=== PATIENT | male | born 1960 | race Caucasian/White ===

== ENCOUNTER 2021-02-02 05:55 | Inpatient (IN) | payer OTHER, SELFPAY ==
[2021-01-28 10:26] LABS: BASOPHILS # (AUTO) 0.1 K/uL (0.0-0.2); BASOPHILS % (AUTO) 0.8 % (0.0-2.0); EOSINOPHILS # (AUTO) 0.2 K/uL (0.0-0.4); EOSINOPHILS % (AUTO) 2.9 % (0.0-4.0); HEMATOCRIT 43.4 % (36-54); HEMOGLOBIN 14.4 g/dL (14.0-18.0); LYMPHOCYTES # (AUTO) 1.8 K/uL (1.0-5.5); LYMPHOCYTES % (AUTO) 28.6 % (20.5-51.5); MEAN CORPUSCULAR HEMOGLOBIN 28 pg (27-31); MEAN CORPUSCULAR HGB CONC 33 % (32-36); MEAN CORPUSCULAR VOLUME 85 fL (79.0-98.0); MONOCYTES # (AUTO) 0.3 K/uL (0.0-1.0); MONOCYTES % (AUTO) 5.4 % (1.7-9.3); NEUTROPHILS % (AUTO) 62.3 % (40.0-70.0); PLATELET COUNT (AUTO) 165 K/uL (130-430); RED CELL DISTRIBUTION WIDTH 14.3 % (9.0-15.0); WHITE BLOOD COUNT (AUTO) 6.5 K/uL (4.8-10.8)
[2021-01-28 10:30] LABS: BILIRUBIN,URINE NEGATIVE (NEGATIVE); BLOOD, URINE NEGATIVE (NEGATIVE); CLARITY/URINE CLEAR (CLEAR); COLOR,URINE YELLOW (YELLOW); GLUCOSE,URINE 1+ (NEGATIVE); KETONES,URINE NEGATIVE (NEGATIVE); LEUKOCYTE ESTERASE ,URINE NEGATIVE (NEGATIVE); NITRITE, URINE NEGATIVE (NEGATIVE); PROTEIN URINE NEGATIVE (NEGATIVE); UROBILINOGEN,URINE 0.2 (0.2-1.0)
[2021-01-28 11:12] LABS: CALCIUM 8.3 mg/dL (8.4-11.0); CREATININE 0.81 mg/dL (0.55-1.30); POTASSIUM 4.1 mmol/L (3.5-5.1)
[~2021-02-02] VITALS: Ht 172.7 cm; Wt 95.3 kg
[2021-02-02] MEDS ORDERED: POLYMYXIN 500,000/BACIT.10,000 UNITS in NS IRR 1 L IR ONE (07:22)
[2021-02-02] MEDS ORDERED: LIDOCAINE/EPI 1% 1:100000 20 ML VIAL INJ ONE (07:24)
[2021-02-02] MEDS ORDERED: PROPOFOL 200MG/ 20ML VIAL (DIPRIVAN) IV ONE (07:24)
[2021-02-02] MEDS ORDERED: CEFAZOLIN 2 GM IVPB PREMIX 50 ML IV ONE (07:24)
[2021-02-02] MEDS ORDERED: fentaNYL CITRATE/PF 100 MCG/2 ML AMP IVP ONE (07:24)
[2021-02-02] MEDS ORDERED: LR 1,000 ML IV.SOLN IV ONE (07:24)
[2021-02-02] MEDS ORDERED: MIDAZOLAM HCL 5 MG/5 ML VIAL IVP ONE (07:24)
[2021-02-02] MEDS ORDERED: ONDANSETRON HCL 4 MG/2 ML VIAL IVP ONE (07:24)
[2021-02-02] MEDS ORDERED: BUPIVACAINE LIPOSOME/PF 266 MG/20 ML VIAL INFIL ONE (07:39)
[2021-02-02] MEDS ORDERED: NALOXONE HCL 0.4 MG/ML AMP (NARCAN) IVP PRN (08:15)
[2021-02-02] MEDS ORDERED: KETOROLAC TROMETHAMINE 30 MG VIAL IVP PRN (08:15)
[2021-02-02] MEDS ORDERED: METOCLOPRAMIDE HCL 10 MG/2 ML VIAL IVP PRN (08:15)
[2021-02-02] MEDS ORDERED: HYDROmorphone 1 MG INJ. 1 MG/ML CARTRIDGE ONE (09:48)
[2021-02-02] MEDS: HYDROmorphone 1 MG INJ. 1 MG/ML CARTRIDGE IVP PRN ×2 (09:48→10:03)
[2021-02-02 11:29] VITALS: BP_SYST 132
== END 2021-02-02 12:30 | disposition home or self-care (01) | DRG 352 ==
LOC: SMU 05:55 → EDBD 07:30
PROVIDERS: ADMIT Surgery; ATTEND Surgery
PROC: 0YU607Z Supplement Left Inguinal Region with Autologous Tissue Substitute, Open Approach (ICD-10-PCS; 2021-02-02)
PROC: 0YU60JZ Supplement Left Inguinal Region with Synthetic Substitute, Open Approach (ICD-10-PCS; principal; 2021-02-02 07:30)
DX: K40.20 Bilateral inguinal hernia, without obstruction or gangrene, not specified as recurrent (principal); D17.9 Benign lipomatous neoplasm, unspecified; Z20.822 Contact with and (suspected) exposure to COVID-19; Z79.899 Other long term (current) drug therapy
CPT/HCPCS: 36415; 80048; 81003; 82962; 85025; 88304; 93005; C1781; C9290; J0690; J1170; J2250; J2405; J2704; J3010; J7120; U0003

== ENCOUNTER 2021-07-22 13:45 | Outpatient (CLI) | payer OTHER | END 2021-07-22 19:02 | disposition home or self-care (01) | LOC: SRD 13:45 | PROVIDERS: ATTEND Internal Medicine | DX: M47.816 Spondylosis without myelopathy or radiculopathy, lumbar region (principal); M43.16 Spondylolisthesis, lumbar region; M46.06 Spinal enthesopathy, lumbar region; M48.061 Spinal stenosis, lumbar region without neurogenic claudication; M54.40 Lumbago with sciatica, unspecified side | CPT/HCPCS: 72110 ==

== ENCOUNTER 2021-07-23 09:02 | Outpatient (CLI) | payer OTHER ==
[2021-07-23 10:55] LABS: CALCIUM 8.5 mg/dL (8.4-11.0); CREATININE 0.82 mg/dL (0.55-1.30); POTASSIUM 4.1 mmol/L (3.5-5.1); TOTAL BILIRUBIN 0.4 mg/dL (0.0-1.0)
[2021-07-23 10:56] LABS: ALBUMIN 3.8 g/dL (3.4-4.8)
== END 2021-07-23 19:01 | disposition home or self-care (01) ==
LOC: SLB 09:02
PROVIDERS: ATTEND Internal Medicine
DX: E78.5 Hyperlipidemia, unspecified (principal); I10 Essential (primary) hypertension; E11.9 Type 2 diabetes mellitus without complications
CPT/HCPCS: 36415; 80053; 80061; 83036

== ENCOUNTER 2021-11-11 09:40 | Outpatient (CLI) | payer OTHER | END 2021-11-11 20:08 | disposition home or self-care (01) | LOC: SMI 09:40 | PROVIDERS: ATTEND Anesthesiology Pain Medicine | DX: M47.817 Spondylosis without myelopathy or radiculopathy, lumbosacral region (principal); M51.27 Other intervertebral disc displacement, lumbosacral region; M43.16 Spondylolisthesis, lumbar region; M48.061 Spinal stenosis, lumbar region without neurogenic claudication; M89.38 Hypertrophy of bone, other site; M54.30 Sciatica, unspecified side | CPT/HCPCS: 72148 ==

== ENCOUNTER 2021-11-18 08:21 | Outpatient (CLI) | payer OTHER ==
[2021-11-18 10:00] LABS: ALBUMIN 3.9 g/dL (3.4-4.8); CALCIUM 8.3 mg/dL (8.4-11.0); CREATININE 0.67 mg/dL (0.55-1.30); POTASSIUM 3.8 mmol/L (3.5-5.1); TOTAL BILIRUBIN 0.4 mg/dL (0.0-1.0)
[2021-11-19 09:06] LABS: % FREE PSA 16.5 % (.); FREE PSA 0.66 ng/mL
[2021-11-21 11:13] LABS: HEMOGLOBIN A1C 6.6 % (4.8-5.6)
== END 2021-11-18 20:42 | disposition home or self-care (01) ==
LOC: SLB 08:21
PROVIDERS: ATTEND Internal Medicine
DX: Z13.21 Encounter for screening for nutritional disorder (principal); E11.9 Type 2 diabetes mellitus without complications; E78.5 Hyperlipidemia, unspecified; I10 Essential (primary) hypertension; R97.20 Elevated prostate specific antigen [PSA]
CPT/HCPCS: 36415; 80053; 80061; 82306; 82570; 83036; 84153

== ENCOUNTER 2021-11-25 11:40 | Outpatient (CLI) | payer OTHER | END 2021-11-25 19:28 | disposition home or self-care (01) | LOC: SRD 11:40 | PROVIDERS: ATTEND Internal Medicine | DX: M25.561 Pain in right knee (principal) | CPT/HCPCS: 73564 ==

== ENCOUNTER 2022-02-09 10:36 | Outpatient (CLI) | payer OTHER | END 2022-02-09 20:45 | disposition home or self-care (01) | LOC: SMI 10:36 | DX: M43.16 Spondylolisthesis, lumbar region (principal); M47.816 Spondylosis without myelopathy or radiculopathy, lumbar region; M46.04 Spinal enthesopathy, thoracic region; M51.36 Other intervertebral disc degeneration, lumbar region; M51.27 Other intervertebral disc displacement, lumbosacral region; M70.89 Other soft tissue disorders related to use, overuse and pressure multiple sites; M77.12 Lateral epicondylitis, left elbow; G56.02 Carpal tunnel syndrome, left upper limb | CPT/HCPCS: 72148 ==

== ENCOUNTER 2022-04-28 09:17 | Outpatient (CLI) | payer OTHER ==
[2022-04-28 10:26] LABS: ALBUMIN 3.8 g/dL (3.4-4.8); CALCIUM 7.8 mg/dL (8.4-11.0); CREATININE 0.88 mg/dL (0.55-1.30); POTASSIUM 3.6 mmol/L (3.5-5.1); TOTAL BILIRUBIN 0.4 mg/dL (0.0-1.0)
== END 2022-04-28 19:28 | disposition home or self-care (01) ==
LOC: SLB 09:17
PROVIDERS: ATTEND Internal Medicine
DX: E11.9 Type 2 diabetes mellitus without complications (principal); E78.5 Hyperlipidemia, unspecified; E55.9 Vitamin D deficiency, unspecified; I10 Essential (primary) hypertension
CPT/HCPCS: 36415; 80053; 80061; 82306; 83036

== ENCOUNTER 2022-10-09 11:11 | Outpatient (CLI) | payer OTHER ==
[2022-10-09 11:59] LABS: ALBUMIN 3.9 g/dL (3.4-4.8); CALCIUM 8.1 mg/dL (8.4-11.0); CREATININE 0.82 mg/dL (0.55-1.30); TOTAL BILIRUBIN 0.5 mg/dL (0.0-1.0)
== END 2022-10-09 20:42 | disposition home or self-care (01) ==
LOC: SLB 11:11
DX: E11.9 Type 2 diabetes mellitus without complications (principal); I10 Essential (primary) hypertension; E78.5 Hyperlipidemia, unspecified; Z79.899 Other long term (current) drug therapy
CPT/HCPCS: 36415; 80053; 80061; 83036

== ENCOUNTER 2022-10-12 10:24 | Outpatient (CLI) | payer OTHER | END 2022-10-12 17:12 | disposition home or self-care (01) | LOC: SCT 10:24 | PROVIDERS: ATTEND Physician Assistant | DX: M47.816 Spondylosis without myelopathy or radiculopathy, lumbar region (principal); M43.16 Spondylolisthesis, lumbar region; M25.78 Osteophyte, vertebrae; M51.37 Other intervertebral disc degeneration, lumbosacral region; M48.062 Spinal stenosis, lumbar region with neurogenic claudication | CPT/HCPCS: 72132; 72114; 76376; Q9967 ==

== ENCOUNTER 2023-01-03 09:25 | Outpatient (CLI) | payer OTHER ==
[2023-01-03 10:29] LABS: ALBUMIN 3.7 g/dL (3.4-4.8); CALCIUM 8.6 mg/dL (8.4-11.0); CREATININE 0.88 mg/dL (0.55-1.30); TOTAL BILIRUBIN 0.3 mg/dL (0.0-1.0)
[2023-01-04 08:06] LABS: PROSTATE SPECIFIC AG 4.5 ng/mL (0.0-4.0)
== END 2023-01-03 17:51 | disposition home or self-care (01) ==
LOC: SLB 09:25
PROVIDERS: ATTEND Internal Medicine
DX: Z00.00 Encounter for general adult medical examination without abnormal findings (principal); I10 Essential (primary) hypertension; Z12.5 Encounter for screening for malignant neoplasm of prostate; E78.5 Hyperlipidemia, unspecified; E11.21 Type 2 diabetes mellitus with diabetic nephropathy
CPT/HCPCS: 36415; 80053; 80061; 82306; 82570; 82607; 83037; 84153